=== PATIENT | male | born 1950 | race Caucasian/White ===

== ENCOUNTER 2022-06-24 01:18 | Day surgery (SDC) | payer MEDICARE, OTHER, SELFPAY ==
[2022-06-18 15:07] VITALS: BMI 32.5
--- NOTE | 2022-06-18 15:23 | PC.NURSE ---
Report to the Outpatient Waiting Room, entrance under the green pavilion located off [facility], at time _0800_ on date _06/24/22 . OR Time: ____09____. - You and your visitor will be asked a series of questions to screen for COVID 19 for your protection. - Only one visitor is allowed at this time. - The patient visitor is requested to leave or wait in car when not with patient. - A mask is required within the hospital. Take the following medications with a SIP of water the morning of surgery: _REG HOME MEDS_ Medications to discontinue per physician N/A Date to take last dose MAY HAVE LIGHT BREAKFAST Please no make-up, nail sudanese, hairspray, perfume, deodorant, or body powder the day of surgery. No jewelry (including any body piercings) or valuables the day of surgery, leave them at home. Please take a shower or bath the night before, or the morning of, surgery with an antibacterial soap. Wear comfortable, loose fitting clothing. Children are encouraged to wear pajamas. - Jewelry must be removed prior to entering the operating room. Rings and piercings that are not removed may be cut off. - The hospital will not accept responsibility for valuables. - Please leave all valuables, including medications, at home the day of surgery. If you are going home after surgery, a licensed maintenance truck driver must drive you home. - NO public transportation without another adult. - We recommend that an adult stay with you for 24 hours following discharge. - We also recommend that you do not drive, make important decision, drink alcoholic beverages, or take any drugs that were not prescribed by your health care provider for at least 24 hours after your discharge time. For Pediatric surgeries, we recommend two adults accompany the child home (only one inside the building at this time). Follow any additional instructions given to you from your surgeon. If you or anyone in your household have experienced Covid symptoms in the past week, please notify your surgeon or the nurse liaison at the phone number below for possible testing. Telephone instructions given to ___PT and asked if any additional questions and then verbalized understanding. Patient advised to call surgeon office or pre surgery nurse liaison [phone] if any additional questions.
[2022-06-24] VITALS (9 sets, daily range): BP systolic 152–185; BP diastolic 51–82; PULSE 40–50; RESP 14–18; TEMP 36.8; O2SAT 97–100
--- NOTE | 2022-06-24 07:16 | WPDHPUPDATE1 ---
History and Physical Update Update Date/Time: 06/24/22 07:16 History and Physical has been reviewed, including an updated exam of the patient. There are NO changes in the patient's condition. Risks, benefits, and alternatives have been discussed and questions answered. Patient agrees to proceed with procedure.
[2022-06-24] MEDS: LIDO 1%/EPINEPHRINE 1:100,000 10 ML VIAL 15 ML INFILTRATE (11:37)
[2022-06-24] MEDS: BACITRACIN OINTMENT 15 GM TUBE 1 APPLIC TOPICAL (11:38)
--- NOTE | 2022-06-24 11:38 | SUR.OPER ---
Frozen section specimen sent with JESUS Yang and received in pathology by
--- NOTE | 2022-06-24 12:25 | SUR.PHASEII ---
PATIENT REFUSED BEDSIDE BLOOD SUGAR.
--- NOTE | 2022-06-24 12:33 | SUR.PHASEII ---
PATIENT WAS WALKING IN NURSING STATION WHEN HE FELL FORWARD; REMAINED AWAKE AND ALERT. SEATED IN A WHEELCHAIR. TINY ABRASION TO RIGHT EYEBROW WITH SMALL HEMATOMA; PATIENT REFUSED BLOOD SUGAR OR ANY OTHER MEDICAL INTERVENTION. SHREYAS NOTIFIED.
--- NOTE | 2022-06-24 17:56 | W.PM.PROC2 ---
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 He was then taken to the operating room where he was placed supine on the operating table. A time-out was held and confirmed. His head and face were prepped and draped in usual fashion. The site was carefully marked for the actual excision and widely infiltrated with 1% lidocaine with epinephrine. The full-thickness skin ellipse was incised in compass thing the obvious mass and additional discolored areas immediately adjacent. This resulted in a 3 cm x 2 cm excision. The excision was taken at the base of the subcutaneous tissue along a thin layer of galea The galea was not penetrated. The specimen was marked at the most anterior aspect as 12:00 p.m. with a suture. It was sent for frozen section. We proceeded to undermine the skin edges more than 2 cm on all aspects superficial to the galea. This permitted advancement of the skin toward the midline of this wound and allowed closure with interrupted 3-0 nylon sutures. 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 This was not unexpected. The patient has a lot of actinic damage. We elected not to further excise skin cancer at this time since the patient is under the care of a recording studio set up worker and expects to have additional treatment in the near future. This was discussed with the patient. The small bandage was applied over bacitracin ointment and the patient was discharged from the operating room in stable condition. Estimated Blood Loss 5 Drains No Packing No Pathology Yes Complications No immediate complications Condition Stable Disposition Same day
== END 2022-06-24 12:25 | disposition home or self-care (01) ==
PROVIDERS: PCP Family Medicine Sports Medicine; Visit Provider Plastic Surgery
PROC: (CPT 11623; principal; 2022-06-24 10:00)
DX: C44.42 Squamous cell carcinoma of skin of scalp and neck (principal); C44.41 Basal cell carcinoma of skin of scalp and neck; I25.10 Atherosclerotic heart disease of native coronary artery without angina pectoris; I12.9 Hypertensive chronic kidney disease with stage 1 through stage 4 chronic kidney disease, or unspecified chronic kidney disease; E11.22 Type 2 diabetes mellitus with diabetic chronic kidney disease; E11.21 Type 2 diabetes mellitus with diabetic nephropathy; N18.9 Chronic kidney disease, unspecified; E78.5 Hyperlipidemia, unspecified; Z79.02 Long term (current) use of antithrombotics/antiplatelets; Z79.82 Long term (current) use of aspirin
CPT/HCPCS: 11623; 13121; 88305; 88331; A9270

== ENCOUNTER 2022-10-13 02:14 | Emergency (ER) | payer MEDICARE, OTHER, SELFPAY ==
[2022-10-13] VITALS (29 sets, daily range): BP systolic 105–175; BP diastolic 47–78; PULSE 35–69; RESP 10–20; TEMP 36.4–36.7; O2SAT 87–100
--- NOTE | ~2022-10-13 | CT_ITS ---
EXAMINATION: CTA chest abdomen pelvis DATE: 10/13/2022 07:13 INDICATION: Lower gastrointestinal hemorrhage. TECHNIQUE: Computed tomographic angiography (CTA) of the chest, abdomen, and pelvis was performed wit h 100 mL Omnipaque-350 intravenous contrast due to the severity of the patient's gastrointestinal hem orrhage and associated health risk. Automated exposure control and iterative reconstruction technique were employed. The dose-length product was 1572.32 mGy-cm. Maximum intensity projection 3D-reconstru ctions of the aorta and other arteries were constructed by the technologist on a separate workstation . COMPARISON: CT abdomen and pelvis 10/13/2022, 04/08/2015 FINDINGS: CHEST CTA: The lungs demonstrate mild atelectasis. Calcified pulmonary nodules and calcified left hilar lymph no rochelle are consistent with old granulomatous disease. There is a calcified pleural plaque at right lung base. No pleural effusion. Cardiomegaly is noted. There are coronary artery calcifications. No perica rdial effusion. There is mild thoracic spondylosis. ABDOMEN AND PELVIS CTA: The liver and spleen are normal. There are changes of cholecystectomy. The pancreas and right adrenal gland are normal. There are masses in the left adrenal gland measuring up to 3.7 cm containing fat, consistent with myelolipomas. There is a 5 mm cyst in right kidney. There is cortical thinning of the kidneys. The prostate is mildly enlarged. There is acute hemorrhage in the rectum from a small vesse l. The rectum is distended. There are scattered diverticula in the colon. The appendix is not visuali zed. There are no pathologically enlarged lymph nodes. There is a supraumbilical ventral hernia conta ining fat. There is no free intraperitoneal fluid. There is severe lower lumbar spondylosis. IMPRESSION: 1. Acute hemorrhage in the rectum from a small vessel. It is not clear whether this vessel is a small branch of the inferior mesenteric artery or vein. Reviewed, dictated and finalized at location A. L INSTRUCTOR
--- NOTE | ~2022-10-13 | CT_ITS ---
EXAMINATION: CT abdomen pelvis wo con DATE: 10/13/2022 04:00 INDICATION: Lower gastrointestinal hemorrhage. TECHNIQUE: Computed tomography (CT) of the abdomen and pelvis was performed without intravenous contr ast. Automated exposure control and iterative reconstruction technique were employed. The dose-length product was 1458.63 mGy-cm. COMPARISON: CT abdomen and pelvis 04/08/2015 FINDINGS: The visualized portions of the lung bases demonstrate mild atelectasis. No pleural effusion . The heart size is normal. There are coronary artery calcifications. No pericardial effusion. The li teodora and spleen are normal. There are changes of cholecystectomy. The pancreas and right adrenal gland are normal. There are masses in left adrenal gland containing fat measuring up to 3.7 cm, consistent with myelolipomas. The kidneys are normal. There is no urolithiasis. The prostate is mildly enlarged . There are scattered diverticula in the colon. There is mild fat stranding around the sigmoid colon. Material in the sigmoid colon and rectum demonstrates heterogeneous attenuation, which is indetermin ate for intraluminal hemorrhage. The appendix is not visualized. There are no pathologically enlarged lymph nodes. There is no free intraperitoneal fluid. There is severe lower lumbar spondylosis. IMPRESSION: 1. Mild fat stranding around the sigmoid colon, consistent with edema versus inflammation. Reviewed, dictated and finalized at location A. [employer] IMPRESSION: 1. Mild fat stranding around the sigmoid colon, consistent with edema versus in flammation.
[2022-10-13] MEDS: PANTOPRAZOLE SODIUM IV 40 MG VIAL IV PUSH (02:45)
[2022-10-13 02:47] LABS: Basophils Absolute Auto 0.1 K/mm3 (0.0-0.1); Basophils Percent Auto 1.3 % (0.2-1.2); Eosinophils Absolute Auto 0.3 K/mm3 (0-0.3); Eosinophils Percent Auto 4.2 % (0-4.4); Hematocrit 32.7 % (42.0-52.0); Hemoglobin 10.7 g/dL (14.0-18.0); Immature Granulocyte Absolute 0.03 K/mm3 (0.00-0.031); Immature Granulocyte Percent A 0.4 % (0-0.5); Lymphocytes Absolute Auto 2.17 K/mm3 (0.9-3.2); Lymphocytes Percent Auto 26.5 % (18.3-44.2); Mean Corpuscular HGB Conc 32.7 g/dl (32-36); Mean Corpuscular Hemoglobin 31.8 pg (26-34); Mean Platelet Volume 9.6 fl (7.4-10.4); Monocytes Absolute Auto 0.9 K/mm3 (0.1-0.6); Monocytes Percent Auto 11.4 % (2.6-8.5); Neutrophils Absolute Auto 4.6 K/mm3 (1.3-6.7); Neutrophils Percent Auto 56.2 % (45.5-73.1); Platelet Count Result 269 k/mm3 (150-375); Red Blood Count 3.37 M/mm3 (4.6-6.20); Red Cell Distribution Width 13.6 % (11.5-14.5); White Blood Count 8.2 K/mm3 (4.5-10.0)
[2022-10-13 02:57] LABS: Alanine Aminotransferase 20 U/L (6-50); Albumin Level 4.4 g/dL (3.5-5.1); Alkaline Phosphatase 31 U/L (38-126); Anion Gap 12 mmol/L (8-16); Aspartate Amino Transferase 38 U/L (17-59); Bilirubin,Total 0.5 mg/dL (0.2-1.3); Blood Urea Nitrogen 42 mg/dL (9-20); Carbon Dioxide 20 mmol/L (22-30); Chloride 109 mmol/L (98-107); Estimated CRCL calculation 26 ml/min; Estimated Glomerular Filt Rate 21; Glucose 172 mg/dL (65-110); Magnesium 1.7 mg/dL (1.6-2.3); Potassium 4.3 mmol/L (3.4-5.0); Sodium 141 mmol/L (137-145)
[2022-10-13 02:58] LABS: INR 1.2; Prothrombin Time 14.7 Seconds (11.1-14.7)
[2022-10-13 02:59] LABS: Partial Thromboplastin Time 28.9 SECONDS (22.3-36.8)
--- NOTE | 2022-10-13 03:20 | ED.GIBLEED ---
HPI - GI Bleed General Chief complaint: GI Bleed Stated complaint: rectal bleeding Time Seen by Provider: 10/13/22 02:22 History of Present Illness HPI Narrative: 72-year-old male presents with several episodes of bloody diarrhea and abdominal cramping prior to arrival here, has never had this happen in the past, no nausea or vomiting, does have a history of diverticulitis. Related Data Home Medications Medication Instructions Recorded Confirmed Probiotic 1 tab-cap [facility] 06/18/22 06/18/22 Zn-pyg gzni-[id number]-jnv palmet 2 cap PO [facility] 06/18/22 06/18/22 capsule amlodipine 10 mg tablet 10 mg HS 06/18/22 06/18/22 aspirin 81 mg tablet,delayed 81 mg PO BID 06/18/22 06/18/22 release chlorthalidone 25 mg tablet 25 mg [facility] 06/18/22 06/18/22 clopidogrel 75 mg tablet 75 mg QA 06/18/22 06/18/22 cranberry 1,000 mg capsule 2,000 mg PO [facility] 06/18/22 06/18/22 dapagliflozin 5 mg tablet (Farxiga) 5 mg [facility] 06/18/22 06/18/22 fenofibrate 160 mg tablet 160 mg [facility] 06/18/22 06/18/22 glipizide 10 mg tablet 10 mg BID 06/18/22 06/18/22 lisinopril 5 mg tablet 5 mg PO [facility] 06/18/22 06/18/22 lovastatin 10 mg tablet 10 mg PO QPM 06/18/22 06/18/22 metformin 500 mg tablet 1,000 mg BID 06/18/22 06/18/22 multivitamin 1 tablet PO [facility] 06/18/22 06/18/22 Allergies Allergy/AdvReac Type Severity Reaction Status Date / Time No Known Allergies Allergy Unknown Verified 06/18/22 14:59 Review of Systems Review of Systems: CONST: No fever. HEENT: No sore throat C/V: No chest pain RESP: No cough GI: Bloody diarrhea : No dysuria. M/S: No joint pain. SKIN: No rash. NEURO: [No headache or focal numbness or weakness] PSYCH: [No depression] [facility] Past Medical History Medical History Impingement syndrome of right shoulder Impingement syndrome, shoulder, left Lateral epicondylitis of right elbow Family History Family History Other Family history of congenital heart disease Social History Social History Smoking status: Former smoker Tobacco type: cigarettes Second hand tobacco smoke exposure: No Additional smoking assessment comments: STATES SMOKED FOR ABOUT A WEEK - AGE 19 Alcohol intake: current Alcohol use details: STATES MAYBE A BEER ONCE IN A GREAT WHILE Substance use: never Substance use type: does not use Spiritual care concerns: No Exam Narrative: EXAMINATION OF ORGAN SYSTEMS/BODY AREAS: Constitutional: Vital signs per nursing GENERAL:[No acute distress, non-toxic appearing.] HEAD: Normal with no signs of head trauma. EYES: EOMI, conjunctiva normal ENT: Hearing grossly intact LUNGS: Nonlabored breathing. HEART: [Regular rate and rhythm] ABD: [Soft], [nontender to palpation] RECTAL: Spots of bright red blood in underwear and in rectal vault; no rectal tenderness EXT: Normal range of motion SKIN: [No rashes or lesions.] NEURO: [Alert and oriented x 3. No gross focal sensory or strength deficits.] PSYCH: Normal affect Course Vital Signs Vital signs: Vital Signs Temperature 97.5 F L 10/13/22 02:19 Pulse Rate 65 10/13/22 02:19 Respiratory Rate 18 10/13/22 02:19 Blood Pressure 175/64 H 10/13/22 02:19 Pulse Oximetry 99 10/13/22 02:19 Oxygen Delivery Room Air 10/13/22 02:19 Temperature 97.7 F 10/13/22 06:00 Pulse Rate 35 L 10/13/22 06:32 Respiratory Rate 14 10/13/22 06:32 Blood Pressure 134/53 L 10/13/22 06:32 Pulse Oximetry 100 10/13/22 06:30 Oxygen Delivery Room Air 10/13/22 02:19 MDM - GI Bleed MDM Narrative Medical decision making narrative: 72-year-old male presenting with several episodes of lower GI bleeding, vital signs within acceptable limits, he does have small mount of blood in his underwear and in his rectal vault. Labs and imaging were ordered, hemoglobin 10.7, creatinine elevated at 3 which is around his
[2022-10-13 03:52] LABS: SARS-CoV-2 RNA PCR Negative
[2022-10-13] MEDS: SODIUM CHLORIDE 0.9% IV 250 ML 30 ML IV CONT (05:57)
[2022-10-13] MEDS: LACTATED RINGERS 1,000 ML 999 ML IV CONT (06:09)
--- NOTE | 2022-10-13 06:56 | PC.NURSE ---
Pt accepted at [facility]. ICU bed number [id number]. Called and spoke with ARSLAN Vaughn states to call after [phone] with report because no RN is assigned to the room at this time. Handoff report given.
[2022-10-13 07:47] LABS: Hematocrit 30.8 % (42.0-52.0)
--- NOTE | 2022-10-13 08:15 | PC.NURSE ---
Pt being transferred with blood products infusing. Approx 240ml infusing prior to transfer
== END 2022-10-13 08:16 | disposition short-term general hospital (02) ==
PROVIDERS: Emergency Provider Emergency Medicine; PCP Family Medicine Sports Medicine
DX: K92.2 Gastrointestinal hemorrhage, unspecified (principal); D64.9 Anemia, unspecified; R00.1 Bradycardia, unspecified; Z20.822 Contact with and (suspected) exposure to COVID-19
CPT/HCPCS: 36415; 36430; 71275; 74174; 74176; 80053; 83735; 85014; 85018; 85025; 85610; 85730; 86850; 86900; 86901; 86923; 96361; 96365; 96375; 99285; C9113; J2543; J7050; J7120; P9016; Q9967; U0003; U0005